=== PATIENT | female | born 1955 | race Two or more races ===

== ENCOUNTER → 2017-03-10 | Outpatient (CLI) | payer OTHER ==
--- NOTE | 2017-03-10 14:38 | WOMENS IMAGING REPORT ---
EXAM DESCRIPTION: BILAT SCREENING MAMMO W/CAD COMPLETED DATE/TIME: 03/10/2017 1:20 pm REASON FOR STUDY: ROUTINE SCREENING Z12.31 Z12.31 ENCNTR SCREEN MAMMOGRAM FOR MALIGNANT NEOPLASM OF ANGELIKA COMPARISON: March 2016 and March 2015 TECHNIQUE: Standard craniocaudal and mediolateral oblique views of each breast recorded using Atticousa l acquisition. LIMITATIONS: None. FINDINGS: No masses, calcifications or architectural distortion. No areas of suspicion. Read with the assistance of CAD. .[facility] - R2 Cenova Version 1.3 .[facility] - R2 Cenova Version 1.3 .[facility] - R2 Cenova Version 2.4 .[facility] [place] - R2 Cenova Version 2.4 .[facility] - R2 Computer Systems Software Engineer Version 9.2 IMPRESSION: NORMAL MAMMOGRAM. BIRADS 1. BREAST DENSITY: c. The breasts are heterogeneously dense, which may obscure small masses. BIRAD: 1 NEGATIVE RECOMMENDATION: ROUTINE SCREENING COMMENT: The patient has been notified of the results by letter per SA requirements. Additional no tification policies are in place for contacting patient with suspicious or incomplete findings. Quality ID #225: The [employer] recommends an annual screening mammogram for women aged 40 years or over. This facility utilizes a reminder system to ensure that all patients receive reminder letters, and/or direct phone calls for appointments. This includes reminders for routine scr eening mammograms, diagnostic mammograms, or other Breast Imaging Interventions when appropriate. Th is patient will be placed in the appropriate reminder system. The [employer] (ACR) has developed recommendations for screening MRI of the breast s in certain patient populations, to be used in conjunction with mammography. Breast MRI surveillanc e may be appropriate for women with more than 20% lifetime risk of developing breast cancer as deter mined by genetic testing, significant family history of the disease, or history of mantle radiation f or Hodgkins Disease. ACR Practice Guidelines 2008. TECHNICAL DOCUMENTATION: FINDING NUMBER: (1) ASSESSMENT: (1) JOB ID: [id number] [employer]- All Rights Reserved
== END ==
LOC: WI 10:58
PROVIDERS: ATTEND Physician Assistant
DX: Z12.31 Encounter for screening mammogram for malignant neoplasm of breast (principal)
CPT/HCPCS: 77067; G0202

== ENCOUNTER → 2017-09-12 | Outpatient (CLI) | payer OTHER ==
--- NOTE | 2017-09-12 09:21 | WOMENS IMAGING REPORT ---
EXAM DESCRIPTION: BONE DENSITY HIP/SPINE COMPLETED DATE/TIME: 09/12/2017 9:05 am REASON FOR STUDY: OSTEOPOROSIS Z13.820 ENCOUNTER FOR SCREENING FOR OSTEOPOROSIS COMPARISON: None. TECHNIQUE: Dual-Energy X-ray Absorptiometry (DEXA) of the AP Spine and Hip. LIMITATIONS: None. FINDINGS: LUMBAR SPINE: The bone mineral density (BMD) measured from L1-L4 in the AP projection correlates with a T-score of -1.5, which is osteopenic as defined by the World Health Organization. HIP: The bone mineral density (BMD) measured in the left femoral neck at the hip correlates with a T-score of -1.4, which is osteopenic as defined by the World Health Organization. IMPRESSION: 1. LUMBAR SPINE: Osteopenic 2. HIP: Osteopenic COMMENT: The World Health Organization defines low BMD as follows: T-score: Normal: Greater than -1.0 Osteopenia: Between -1.0 and -2.5 Osteoporosis: Less than -2.5 without fractures Established osteoporosis: Less than -2.5 with fractures In general, you may wish to consider: Diagnosis Treatment Follow-up DEXA Normal BMD Prevention 2-3 years Osteopenia Prevention/Therapy 1-2 years Osteoporosis Therapy Yearly TECHNICAL DOCUMENTATION: JOB ID: [id number] [employer]- All Rights Reserved Reading location - IP/workstation name: [email or web address]
== END ==
LOC: WI 08:41
PROVIDERS: ATTEND Physician Assistant
DX: Z13.820 Encounter for screening for osteoporosis (principal); M85.88 Other specified disorders of bone density and structure, other site
CPT/HCPCS: 77080

== ENCOUNTER 2017-10-16 07:50 | Day surgery (SDC) | payer OTHER ==
[~2017-10-16 07:50] MED LIST: PROPOFOL INJ 200 MG/20 ML VIAL IV ONE
[2017-10-16 09:57] VITALS: BP 115/59
--- NOTE | 2017-10-16 12:58 | Operative Report ---
Operative Report DATE OF SURGERY: 10/16/17 Operative Report: The risks, benefits and alternatives of the procedure including risks of bleeding, perforation requiring surgery are explained to the patient in detail and informed consent is obtained. Patient is taken back to the endoscopy suite and placed in the left, lateral decubital position. Timeout was called. Propofol medication is administered. A rectal examination is done which did not reveal any masses, tears or fissures. An Olympus videoscope was inserted into the patient's rectum. The scope was then carefully advanced all the way to the cecum. The cecum was identified by the usual anatomical landmarks including the ileocecal valve as well as the appendiceal office. Photodocumentation is obtained. Prep is good. The scope was then sequentially pulled back via the various segments of the colon including the ascending colon , hepatic flexure, transverse colon, splenic flexure, descending colon and finally into the rectosigmoid portions of the colon. Retroflexion maneuvers performed. PREOPERATIVE DIAGNOSIS: Change in bowel habits. Screening colonoscopy. Personal history of polyp POSTOPERATIVE DIAGNOSIS: Small sessile polyp on the right side status post status post biopsy. Mild inflammation noted. Diverticulosis. Internal hemorrhoids OPERATION: Colonoscopy with biopsy SURGEON: ALMA ROSA STAPLES ANESTHESIA: LMAC TISSUE REMOVED OR ALTERED: As noted above. COMPLICATIONS: None. ESTIMATED BLOOD LOSS: None. INTRAOPERATIVE FINDINGS: As noted above. PROCEDURE: Patient tolerated the procedure well. No immediate postprocedure complications are noted. Patient discharged in good condition. Discharge date 10/16/2017. Discharge diet: Regular. Discharge activity: Regular. 2-3 week follow-up to discuss findings. If pathology is negative she can get a 10 year surveillance colonoscopy. Patient is instructed to call the office or proceed to the emergency room should there be any further problems or questions.
== END 2017-10-16 09:55 | disposition home or self-care (01) ==
LOC: END 07:50
PROVIDERS: ATTEND Internal Medicine Gastroenterology
DX: Z86.010 Personal history of colon polyps (principal); K52.9 Noninfective gastroenteritis and colitis, unspecified; K64.8 Other hemorrhoids; K57.30 Diverticulosis of large intestine without perforation or abscess without bleeding; K63.5 Polyp of colon
CPT/HCPCS: 45380; 88305 ×2; J2704; 811

== ENCOUNTER → 2018-03-22 | Outpatient (CLI) | payer OTHER ==
--- NOTE | 2018-03-22 09:41 | WOMENS IMAGING REPORT ---
EXAM DESCRIPTION: BILAT SCREENING MAMMO W/CAD COMPLETED DATE/TIME: 03/22/2018 7:41 am REASON FOR STUDY: ROUTINE BILATERAL SCREENING;Z12.31 Z12.31 ENCNTR SCREEN MAMMOGRAM FOR MALIGNANT N EOPLASM OF ANGELIKA COMPARISON: 03/10/2017 and 03/03/2016. TECHNIQUE: Standard craniocaudal and mediolateral oblique views of each breast recorded using digita l acquisition. LIMITATIONS: None. FINDINGS: No masses, calcifications or architectural distortion. No areas of suspicion. Read with the assistance of CAD. .[facility] - R2 Cenova Version 1.3 .[facility] Imaging - R2 Cenova Version 1.3 .[facility] - R2 Cenova Version 2.4 .[facility] [place] - R2 Cenova Version 2.4 .[facility] - R2 Utility Bagger Version 9.2 IMPRESSION: NORMAL MAMMOGRAM. BIRADS 1. BREAST DENSITY: c. The breasts are heterogeneously dense, which may obscure small masses. BIRAD: 1 NEGATIVE RECOMMENDATION: ROUTINE SCREENING COMMENT: The patient has been notified of the results by letter per SA requirements. Additional no tification policies are in place for contacting patient with suspicious or incomplete findings. Quality ID #225: The [employer] recommends an annual screening mammogram for women aged 40 years or over. This facility utilizes a reminder system to ensure that all patients receive reminder letters, and/or direct phone calls for appointments. This includes reminders for routine scr eening mammograms, diagnostic mammograms, or other Breast Imaging Interventions when appropriate. Th is patient will be placed in the appropriate reminder system. The [employer] (ACR) has developed recommendations for screening MRI of the breast s in certain patient populations, to be used in conjunction with mammography. Breast MRI surveillanc e may be appropriate for women with more than 20% lifetime risk of developing breast cancer as deter mined by genetic testing, significant family history of the disease, or history of mantle radiation f or Hodgkins Disease. ACR Practice Guidelines 2008. TECHNICAL DOCUMENTATION: FINDING NUMBER: (1) ASSESSMENT: (1) JOB ID: [id number] [employer]- All Rights Reserved Reading location - IP/workstation name: [facility]
== END ==
LOC: WI 08:02
PROVIDERS: ATTEND Internal Medicine
DX: Z12.31 Encounter for screening mammogram for malignant neoplasm of breast (principal)
CPT/HCPCS: 77067

== ENCOUNTER 2018-11-15 08:57 | Day surgery (SDC) | payer MEDICARE, OTHER ==
[2018-11-12 10:58] LABS: HEMATOCRIT 41.5 % (36.0-47.0); HEMOGLOBIN 13.7 g/dL (12.0-15.5); MEAN CORPUSCULAR HEMOGLOBIN 27.9 pg (27.0-33.4); MEAN CORPUSCULAR VOLUME 85 fl (80-97); PLATELET COUNT 300 10^3/uL (150-450); RED BLOOD COUNT 4.91 10^6/uL (3.72-5.28); RED CELL DISTRIBUTION WIDTH 13.7 % (11.5-14.0); WHITE BLOOD COUNT 6.2 10^3/uL (4.0-10.5)
[2018-11-12 11:04] LABS: APPEARANCE,URINE CLEAR; BILIRUBIN,URINE NEGATIVE (NEGATIVE); COLOR,URINE STRAW; GLUCOSE, URINE NEGATIVE (NEGATIVE); KETONES,URINE NEGATIVE (NEGATIVE); LEUKOCYTE ESTERASE,URINE NEGATIVE (NEGATIVE); NITRITE,URINE NEGATIVE (NEGATIVE); PROTEIN,URINE NEGATIVE (NEGATIVE); URINE SPECIFIC GRAVITY 1.006; UROBILINOGEN,URINE NEGATIVE mg/dL (<2.0)
[~2018-11-15 08:57] MED LIST changes: +FENTANYL CITRATE INJ/PF 100 MCG/2 ML AMPUL ONE; +LACTATED RINGERS 1000 ML IV PRN; +LIDOCAINE 0.5% INJ-PF (5 MG/ML) 50 ML SDV SUBCUT PRN; +MIDAZOLAM 2 MG/2 ML INJ ONE
[2018-11-15] MEDS ORDERED: MIDAZOLAM 2 MG/2 ML INJ ONE (10:05)
[2018-11-15] MEDS ORDERED: DIPHENHYDRAMINE HCL 50 MG/ML VIAL IV PRN (11:21)
[2018-11-15] MEDS ORDERED: MORPHINE SULFATE 10 MG/ML INJ IV PRN (11:21)
[2018-11-15] MEDS ORDERED: ONDANSETRON HCL INJ/PF 4 MG/2 ML SDV IV PRN (11:21)
[2018-11-15] MEDS ORDERED: OXYCODONE-ACETAMINOPHEN 5-325 MG TABLET PO PRN ×4 (11:21→12:53)
[2018-11-15] MEDS ORDERED: FENTANYL CITRATE INJ/PF 100 MCG/2 ML AMPUL IV PRN ×3 (11:21)
[2018-11-15] MEDS ORDERED: MEPERIDINE HCL/PF INJ 25 MG/1 ML DISP.SYRIN IV PRN (11:21)
--- NOTE | 2018-11-15 11:26 | EKG REPORT ---
SEVERITY:- NORMAL ECG - SINUS RHYTHM : Confirmed by: Nick Bruno 15-Nov-2018 11:25:36
[2018-11-15] MEDS ORDERED: ACETAMINOPHEN 1,000 MG/100 ML RTUPB IV ONE (12:20)
[2018-11-15] MEDS ORDERED: OXYCODONE-ACETAMINOPHEN 5-325 MG TABLET ONE (12:51)
[2018-11-15] MEDS ORDERED: IBUPROFEN 800 MG TABLET PO PRN (12:52)
[2018-11-15] MEDS ORDERED: MORPHINE SULFATE 10 MG/ML INJ IM PRN (12:52)
--- NOTE | 2018-11-15 12:58 | Operative Report ---
Operative Report DATE OF SURGERY: 11/15/18 PREOPERATIVE DIAGNOSIS: pelvic pain, postmenopausal with thickened endometrial stripe. POSTOPERATIVE DIAGNOSIS: same OPERATION: hysteroscope D&C SURGEON: DONA COOPER ANESTHESIA: LMAC TISSUE REMOVED OR ALTERED: endometrial currettings COMPLICATIONS: Was taken the operating room prepared and draped in a normal sterile fashion a dorsal lithotomy position in [facility]. In and out cath was performed of approximately 100 cc of clear urine. Sterile speculum was placed in the vagina at the cervix was grasped on the anterior lip with a single-tooth tenaculum and prepped with Betadine. The cervix was extremely stenotic and was not able to be transected with the uterine sound. Therefore the micro dilators were used to dilate the cervix in order to sound the uterus. There is sounded to approximately 6 cm. We then continue dilation to 5 mm to accommodate the hysteroscope. The scope was introduced and immediately noted a couple of small endometrial polyps floating within the hysteroscopic fluid. These were attempted to be grasped with a hysteroscopic grasper however they were not able to be freed. Therefore a extensive curettage was performed with a sharp Kevorkian curette. And the curettings were passed off the field. Scope was reintroduced and noticed that the polyp was still present another attempt at grasping the polyp was unsuccessful so another sharp curettage was performed. Point the polyp was able to be freed. The specimen was passed off the field the sponge lap and needle counts were correct x2 the instruments were removed from the vagina and the patient was taken to recovery in stable condition.
[2018-11-15] MEDS ORDERED: ONDANSETRON HCL INJ/PF 4 MG/2 ML SDV ONE (15:02)
[2018-11-15] MEDS ORDERED: KETOROLAC TROMETHAMINE 60 MG/2 ML SDV ONE (15:02)
[2018-11-15] MEDS ORDERED: DEXAMETHASONE SOD PHOSPHATE INJ 4 MG/1 ML VIAL ONE (15:02)
[2018-11-15 20:17] VITALS: BP 142/85
== END 2018-11-15 13:50 | disposition home or self-care (01) ==
LOC: OROUT 08:57
PROVIDERS: ATTEND Obstetrics & Gynecology
DX: N95.9 Unspecified menopausal and perimenopausal disorder (principal); N84.0 Polyp of corpus uteri; R10.2 Pelvic and perineal pain; Z87.891 Personal history of nicotine dependence; Z88.0 Allergy status to penicillin; Z79.82 Long term (current) use of aspirin
CPT/HCPCS: 36415; 85027; 81001; 88305 ×2; 93005; 93010; 00952; 58558; J2250; J1100; J1885; J3010; A9270; J2405; J2704; J0131; 952

== ENCOUNTER → 2019-01-22 | Outpatient (CLI) | payer MEDICARE, OTHER ==
--- NOTE | 2019-01-22 08:49 | WOMENS IMAGING REPORT ---
EXAM DESCRIPTION: U/S BREAST UNILAT LIMITED COMPLETE DATE/TIME: 01/22/2019 8:31 am REASON FOR STUDY: RT BREAST D48.61 D48.61 NEOPLASM OF UNCERTAIN BEHAVIOR OF RIGHT BREAST FINDINGS: Please see combined report for performance of procedure and radiologic supervision and int erpretation. IMPRESSION: Please see combined report for performance of procedure and radiologic supervision and i nterpretation. Reading location - IP/workstation name: [email or web address]
--- NOTE | 2019-01-22 08:49 | WOMENS IMAGING REPORT ---
EXAM DESCRIPTION: 3D DX MAMMO BILAT COMPLETED DATE/TIME: 01/22/2019 8:16 am REASON FOR STUDY: D48.61 NEOPLASM OF UNCERTAIN BEHAVIOR OF RIGHT BREAST D48.61 NEOPLASM OF UNCERTAI N BEHAVIOR OF RIGHT BREAST COMPARISON: Digital bilateral screening mammogram is dated 03/22/2018, 03/10/2017 and 03/03/2016. EXAM PARAMETERS: Standard craniocaudal and mediolateral oblique views of each breast recorded using digital acquisition and breast tomosynthesis. Read with the assistance of CAD: .[employer] Cottage Supervisor Version 9.2 LIMITATIONS: None. FINDINGS: RIGHT BREAST MASSES: A mass in the mid medial subareolar region of the breast measures 1.5 cm. This correlates t o the clinically palpable mass. A smaller 0.6 cm mass is noted superior to the larger mass. CALCIFICATIONS: No new or suspicious calcifications. ARCHITECTURAL DISTORTION: None. DEVELOPING DENSITY: None. ASYMMETRY: None noted. OTHER: No other significant findings. LEFT BREAST MASSES: No suspicious masses. CALCIFICATIONS: No new or suspicious calcifications. ARCHITECTURAL DISTORTION: None. DEVELOPING DENSITY: None. ASYMMETRY: None noted. OTHER: No other significant finding. BREAST ULTRASOUND: TECHNIQUE: Static and dynamic grayscale images acquired of the right breast in the specific areas of clinical/mammographic concern. Selected color Doppler images recorded. ELASTOGRAPHY PERFORMED: No. LIMITATIONS: None. FINDINGS: MASS: At the 12 o'clock axis, areolar region, 1.7 x 1.2 x 2.0 cm cyst. This correlates the clinical ly palpable area and the right breast mammogram. A smaller 0.4 x 0.3 cm cyst is also noted which lie s superior to the larger cyst. ELASTOGRAPHY CHARACTERISTICS: Not applicable. OTHER: No other significant finding. IMPRESSION: 1. Right breast cysts. The larger cyst correlates to the clinically palpable mass. BREAST DENSITY: c. The breasts are heterogeneously dense, which may obscure small masses. BIRAD: ASSESSMENT: 2 Benign findings. RECOMMENDATION: 1. Clinical correlation and patient advised to follow-up with her provider. COMMENT: The patient has been notified of the results by letter per MQSA requirements. Additional no tification policies are in place for contacting patient with suspicious or incomplete findings. Quality ID #225: The [employer] recommends an annual screening mammogram for women aged 40 years or over. This facility utilizes a reminder system to ensure that all patients receive reminder letters, and/or direct phone calls for appointments. This includes reminders for routine scr eening mammograms, diagnostic mammograms, or other Breast Imaging Interventions when appropriate. Th is patient will be placed in the appropriate reminder system. TECHNICAL DOCUMENTATION: FINDING NUMBER: (1) ASSESSMENT: (1) JOB ID: [id number] [employer]- All Rights Reserved Reading location - IP/workstation name: [email or web address]
== END ==
LOC: WI 07:23
PROVIDERS: ATTEND Physician Assistant
DX: D48.61 Neoplasm of uncertain behavior of right breast (principal)
CPT/HCPCS: 76642; 77066; G0279; 77062

== ENCOUNTER → 2019-12-24 | Outpatient (CLI) | payer MEDICARE, OTHER ==
--- NOTE | 2019-12-24 13:26 | WOMENS IMAGING REPORT ---
EXAM DESCRIPTION: 3D SCREENING MAMMO BILAT IMAGES COMPLETED DATE/TIME: 12/24/2019 11:03 am REASON FOR STUDY: Z12.31 ENCOUNTER FOR SCREENING MAMMOGRAM FOR MALIGNANT NEOPLASM OF BREAST Z12.31 ENCNTR SCREEN MAMMOGRAM FOR MALIGNANT NEOPLASM OF ANGELIKA COMPARISON: Digital bilateral screening mammogram dated 03/22/2018, 03/10/2017 and 03/03/2016. EXAM PARAMETERS: Standard craniocaudal and mediolateral oblique views of each breast recorded using digital acquisition and breast tomosynthesis. Read with the assistance of CAD. .[facility] - R2 Manager Costing Version 9.2 LIMITATIONS: c. The breasts are heterogeneously dense, which may obscure small masses. FINDINGS: Findings present which are benign by mammographic criteria. No suspicious masses, calcific ations or architectural distortion. Pertinent benign findings: Stable calcifications in the breast. Stable mass in the mid medial right breast. Benign mammographic findings may include one or more of the following: Smooth masses, popcorn/rim/coa rse calcifications, asymmetries, post-procedure changes, and lesions with long-standing stability. IMPRESSION: BENIGN MAMMOGRAPHIC FINDINGS. BIRADS 2 BREAST DENSITY: c. The breasts are heterogeneously dense, which may obscure small masses. BIRAD: ASSESSMENT: 2 BENIGN FINDING(S) RECOMMENDATION: 1. ROUTINE SCREENING COMMENT: The patient has been notified of the results by letter per MQSA requirements. Additional no tification policies are in place for contacting patient with suspicious or incomplete findings. Quality ID #225: The [employer] recommends an annual screening mammogram for women aged 40 years or over. This facility utilizes a reminder system to ensure that all patients receive reminder letters, and/or direct phone calls for appointments. This includes reminders for routine scr eening mammograms, diagnostic mammograms, or other Breast Imaging Interventions when appropriate. Th is patient will be placed in the appropriate reminder system. TECHNICAL DOCUMENTATION: FINDING NUMBER: (1) ASSESSMENT: (1) JOB ID: [id number] [employer]- All Rights Reserved Reading location - IP/workstation name: [email or web address]
== END ==
LOC: WI 10:09
PROVIDERS: ATTEND Physician Assistant
DX: Z12.31 Encounter for screening mammogram for malignant neoplasm of breast (principal); R01.1 Cardiac murmur, unspecified
CPT/HCPCS: 77063; 77067